=== PATIENT | male | born 1950 | race Hispanic/Latino ===

== ENCOUNTER → 2018-05-06 | Outpatient (CLI) | payer OTHER ==
[~2018-05-06] MED LIST: LISI-613 PO; METF10004 PO; PRAV40TA3 PO
== END | disposition home or self-care (01) ==
LOC: RAH 12:59
PROVIDERS: ATTEND Family Medicine
DX: I86.1 Scrotal varices (principal); N45.1 Epididymitis
CPT/HCPCS: 76870